=== PATIENT | female | born 1995 | race Caucasian/White ===

== ENCOUNTER 2019-08-10 09:44 | Emergency (ER) | payer MEDICAID, SELFPAY ==
[2019-08-10 09:48] VITALS: BP 137/83; PULSE 137; RESP 18; TEMP 36.4; O2SAT 98; BMI 34.9
--- NOTE | 2019-08-10 09:55 | ED_ITS ---
Entered by Criselda Phillips, acting as scribe for Neville Nava DO Aug 10, 2019 09:44 HPI - General Adult General: Chief complaint: General Medical Stated complaint: Nausea 8 weeks Time Seen by Provider: 08/10/19 09:51 History of Present Illness: HPI narrative: 23 yo luis miguel presents with nausea. Pt states that she is 8 weeks . Pt states that she has felt sick for a few weeks. Pt states that she is supposed to see Dr. Phipps next week. Pt states that she can't keep anything down. Pt states that she can only keep down 1/2 cup of water and some saltine crackers. MD complaint: nausea Onset (ago): day(s) Associated symptoms: Reports nausea and vomiting; Deny chest pain, dyspnea, headache(s), malaise or rash Review of Systems Const: Denies: fever, chills, body aches, change in appetite, fatigue or malaise Eyes: Denies: change in vision, blurry vision or blind spots ENMT: Denies: throat pain, ear pain, nasal discharge or nasal congestion Card: Denies: chest pain, edema, shortness of breath on exertion or shortness of breath when lying down Resp: Denies: shortness of breath, productive cough or non-productive cough GI: Reports: nausea and vomiting : Denies: flank pain, difficulty urinating, painful urination, urinary frequency or urinary urgency Skin/Breast: Denies: rash or itching Neuro: Denies: headache, numbness in extremities, difficulty walking or dizziness Psych: Denies: anxiety, depression or mood swings Endo: Denies: excessive urination, excessive thirst or tired all the time Salomon/Lymph: Denies: easy bruising or easy bleeding PFSH ED PFSH: Statuses (acute, chronic, etc) shown below reflect problem list status as previously entered and may not be historically accurate Social History Smoking and tobacco status: never smoked Physical Exam Const: COMMON NORMALS: no apparent distress GENERAL APPEARANCE: cooperative and comfortable ORIENTATION/CONSCIOUSNESS: Yes awake, Yes oriented to person, Yes oriented to place and Yes oriented to time HENMT: COMMON NORMALS: normocephalic, head/scalp atraumatic, hearing grossly normal bilaterally, external ears normal, EAC's normal, TM's normal bilaterally, nasal mucous membranes and turbinates normal, moist oral mucous membranes and oropharynx normal HEAD & SCALP: normocephalic and atraumatic NOSE: nasal mucous membranes and turbinates normal EXTERNAL EAR: Yes external ears normal EXTERNAL AUDITORY CANAL: EAC's normal TYMPANIC MEMBRANE: TM's normal bilaterally Eye: COMMON NORMALS: PERRL, EOMs intact bilaterally, conjunctivae normal and no scleral icterus CONJUNCTIVA: Yes conjunctivae normal PUPIL: Yes PERRL Neck/C-Spine: COMMON NORMALS: full ROM, no lymphadenopathy, supple and no JVD Lymph: LYMPHATIC: no lymphadenopathy noted and no lymphedema noted Resp: COMMON NORMALS: normal respiratory effort, no retractions, no use of accessory muscles and clear to auscultation bilaterally AUSCULTATION: clear to auscultation bilaterally Cardio: COMMON NORMALS: no JVD, regular rate, regular rhythm and no murmurs RATE: regular rate RHYTHM: regular rhythm GI: COMMON NORMALS: soft to palpation and no hepatosplenomegaly AUSCULTATION: Yes normoactive bowel sounds PALPATION: Yes soft, No tender, No guarding and Yes no hepatosplenomegaly Extremity: COMMON NORMALS: normal to inspection, normal capillary refill, no clubbing, cyanosis or edema, no calf tenderness and no pedal edema Neuro: SENSORIUM/ORIENTATION: Yes oriented to person, Yes oriented to place and Yes oriented to time Skin: COMMON NORMALS: no rashes or lesions noted GENERAL SKIN EXAM: no rashes or lesions noted Course ED course: Proved with IV fluids. Has an appointment with Dr. Phipps later this month for establishing obstetrical care. Started on Diclegis 1 p.o. twice daily gave Phenergan to use as needed for breakthrough if persists or worsens recheck. [place] diet Vital Signs: Vital signs: Vital Signs Temperature 97.6 F 08/10/19 09:48 Pulse Rate 137 H 08/10/19 09:48 Respiratory Rate 18 08/10/19 09:48 Blood Pressure 137/83 08/10/19 09:48 Pulse Oximetry 98 08/10/19 09:48 [facility] - General Adult Lab Data: Labs: Lab Results 08/10/19 08/10/19 08/10/19 Range/Units 10:05 10:11 10:11 WBC 5.6 (4.0-10.0) 10^3/ uL RBC 4.82 (4.1-5.3) 10^6/u L Hgb 13.9 (11.5-15.3) g/dL Hct 41.3 (37.0-47.0) % MCV 85.7 (81-99) fL MCH 28.8 (28.0-34.0) pg MCHC 33.7 (30.0-36.0) g/dL RDW 11.9 L (12.1-15.1) % Plt Count 226 (130-400) 10^3/c mm MPV 10.2 (7.4-10.4) fL Neut % (Auto) 55.3 % Lymph % (Auto) 32.7 % Aiken % (Auto) 7.0 % Eos % (Auto) 4.6 % Baso % (Auto) 0.2 % Neut # (Auto) 3.1 (1.8-7.7) 10^3/u L Lymph # (Auto) 1.8 (0.8-4.8) 10^3/u L Aiken # (Auto) 0.4 (0.2-0.9) 10^3/u L Eos # (Auto) 0.3 (0.0-0.8) 10^3/u L Baso # (Auto) 0.0 (0.0-0.1) 10^3/u L Nucleated RBC % (a uto) 0 % Nucleated RBCs # 0.0 /100WBC Sodium 136 (136-145) mmol/L Potassium 3.9 (3.5-5.1) mmol/L Chloride 100 (98-107) mmol/L Carbon Dioxide 22 (22-29) mmol/L Anion Gap 17.9 (5-19) BUN 9 (6-20) mg/dL Creatinine 0.7 (0.5-0.9) mg/dL GFR Calculation 104.6 (90-130) mL/min Glucose 114 H (74-109) mg/dL Calcium 9.9 (8.6-10.0) mg/Dl Total Bilirubin 0.5 (0.15-1.2) mg/dL AST 25 (0-32) U/L ALT 29 (0-33) U/L Alkaline Phosphata se 64 (35-105) IU/L Total Protein 8.1 (6.6-8.7) g/dL Albumin 4.7 (3.5-5.2) g/dL Globulin 3.4 (1.3-4.6) g/dL Ser , Elsa i-Qnt 510876.00 mIU/mL Urine Color Yellow (Yellow) Urine Appearance Clear (CLEAR) Urine pH 5.0 (5-7) Ur Specific Gravit y 1.020 (1.005-1.030) Urine Protein Neg (Negative) Urine Glucose (UA) Norm (Normal) Urine Ketones 2+ H (Negative) Urine Occult Blood Neg (Negative) Urine Nitrate Negative (Negative) Urine Bilirubin Neg (NEGATIVE) Urine Urobilinogen Norm (Negative) mg/dL Ur Leukocyte Kelly ase Negative (Negative) Discharge Plan Discharge Patient Disposition: Home, Self-Care Clinical Impression: , Hyperemesis Condition: Stable Prescriptions: New promethazine 25 mg tablet 25 mg PO Q6H PRN (Reason: nausea and vomiting) Qty: 20 RF: 0 Diclegis 10-10 mg tablet,delayed release (DR/EC) 1 tab PO BID Qty: 60 RF: 0 No Action No Known Home Medications RF: 0 Referrals: Makenzie Galvez DIPLOMA PHARMACY TECHNICIAN [Primary Care Provider] - Discharge Diet: Advance as tolerated Discharge Activity: Resume usual activity Activity Restrictions/Additional Instructions: Case management will call to assist you in getting set up for a obstetrical care. Coding Level of Care Code ED Photographic Laboratory Technician for Chg Fwd Exam Problem Focused The documentation recorded by the Alan reza Kialy, accurately reflects the service I personally performed and the decisions made by , Neville Nava, Aug 10, 2019 09:44
[2019-08-10] MEDS: promethazine 25 mg/mL SDV 1 mL 12.5 MG IM (10:06)
[2019-08-10] MEDS: sodium chloride 0.9% 1,000 ML 999 ML IV (10:13)
[2019-08-10 10:21] LABS: Basophils % 0.2 %; Eosinophils # 0.3 10^3/uL (0.0-0.8); Eosinophils % 4.6 %; Hematocrit 41.3 % (37.0-47.0); Hemoglobin 13.9 g/dL (11.5-15.3); Lymphocytes # 1.8 10^3/uL (0.8-4.8); Lymphocytes % 32.7 %; Mean Corpuscular HGB Conc 33.7 g/dL (30.0-36.0); Mean Corpuscular Hemoglobin 28.8 pg (28.0-34.0); Mean Corpuscular Volume 85.7 fL (81-99); Mean Platelet Volume 10.2 fL (7.4-10.4); Monocytes # 0.4 10^3/uL (0.2-0.9); Neutrophils # 3.1 10^3/uL (1.8-7.7); Neutrophils % 55.3 %; Nucleated Red Blood Cells % 0 %; Platelet Count 226 10^3/cmm (130-400); Red Blood Count 4.82 10^6/uL (4.1-5.3); Red Cell Distribution Width 11.9 % (12.1-15.1); White Blood Count 5.6 10^3/uL (4.0-10.0)
[2019-08-10 10:22] LABS: Add Urine Microscopic? NO
[2019-08-10 10:31] LABS: Bilirubin Urine Neg (NEGATIVE); Blood Urine Neg (Negative); Glucose Urine UA Norm (Normal); Ketones Urine 2+ (Negative); Leukocyte Esterase Urine Negative (Negative); Nitrate Urine Negative (Negative); Protein Urine Neg (Negative); Urine Appearance Clear (CLEAR); Urine Color Yellow (Yellow); Urobilinogen Urine Norm (Negative)
[2019-08-10 10:48] LABS: Alanine Aminotransferase 29 U/L (0-33); Albumin Level 4.7 g/dL (3.5-5.2); Alkaline Phosphatase 64 IU/L (35-105); Anion Gap 17.9 (5-19); Aspartate Amino Transferase 25 U/L (0-32); Blood Urea Nitrogen 9 mg/dL (6-20); Calcium 9.9 mg/Dl (8.6-10.0); Carbon Dioxide 22 mmol/L (22-29); Chloride 100 mmol/L (98-107); Globulin 3.4 g/dL (1.3-4.6); Glomerular Filtration Rate 104.6 mL/min (90-130); Glucose 114 mg/dL (74-109); Potassium 3.9 mmol/L (3.5-5.1); Sodium 136 mmol/L (136-145); Total Bilirubin 0.5 mg/dL (0.15-1.2); Total Protein 8.1 g/dL (6.6-8.7)
[2019-08-10 11:04] VITALS: BP 103/64; PULSE 61; RESP 16; O2SAT 98
[2019-08-10 11:55] VITALS: BP 119/68; PULSE 63; RESP 16; O2SAT 100
--- NOTE | 2019-08-11 10:50 | DCPLANNER ---
sales activity manager had message to schedule a follow up appointment for patient with [facility]. sales activity manager called [facility], spoke with Peggy, gave clinic patients information. sales activity manager was told that patients information would be printed and reviewed. Clinic will call insurance case manager and patient with appointment information.
--- NOTE | 2019-08-15 12:17 | DCPLANNER ---
Patient has an appointment scheduled for July at 3:15 with CNA PCT, Paola Riddle. Clinic will contact patient with appointment information.
--- NOTE | 2019-08-18 15:11 | DCPLANNER ---
Patient did attend appointment scheduled for 08.17.19 with [facility].
--- NOTE | 2019-08-24 14:39 | DCPLANNER ---
Patient did attend appointment scheduled for 08.17.19 with [facility].
== END 2019-08-10 12:00 | disposition home or self-care (01) ==
PROVIDERS: Emergency Provider Family Medicine; Family Provider Nurse Practitioner; PCP Nurse Practitioner
DX: O21.0 Mild hyperemesis gravidarum (principal); Z3A.08 8 weeks gestation of pregnancy
CPT/HCPCS: 80053; 81003; 84702; 85025; 96360; 96374; 99281; A9270; J2550; J7030

== ENCOUNTER → 2019-08-17 15:43 | Outpatient (BNVA) | payer MEDICAID, SELFPAY | PROVIDERS: Family Provider Nurse Practitioner; PCP Nurse Practitioner; Visit Provider Nurse Practitioner Women's Health | DX: Z01.89 Encounter for other specified special examinations (principal) | CPT/HCPCS: 84315 ==

== ENCOUNTER → 2019-09-05 15:02 | Outpatient (BNVA) | payer MEDICAID, SELFPAY | PROVIDERS: Family Provider Nurse Practitioner; PCP Nurse Practitioner; Visit Provider Obstetrics & Gynecology | DX: O99.211 Obesity complicating pregnancy, first trimester (principal); O21.9 Vomiting of pregnancy, unspecified; Z3A.12 12 weeks gestation of pregnancy | CPT/HCPCS: 80307; 82950; 84315; 85027; 86592; 86762; 86803; 86850; 86900; 87086; 87340; 87806 ==

== ENCOUNTER → 2019-09-19 11:06 | Outpatient (BNVA) | payer MEDICAID, SELFPAY | PROVIDERS: Family Provider Nurse Practitioner; PCP Nurse Practitioner; Visit Provider Obstetrics & Gynecology | DX: Z12.4 Encounter for screening for malignant neoplasm of cervix (principal); O26.892 Other specified pregnancy related conditions, second trimester | CPT/HCPCS: 84315; 87491; 87591 ==

== ENCOUNTER → 2019-09-26 08:21 | Outpatient (BNVA) | payer MEDICAID, SELFPAY | PROVIDERS: Family Provider Nurse Practitioner; PCP Nurse Practitioner; Visit Provider Obstetrics & Gynecology | DX: R73.09 Other abnormal glucose (principal) | CPT/HCPCS: 82951; 82952 ==

== ENCOUNTER → 2019-10-03 09:46 | Outpatient (BNVA) | payer MEDICAID, SELFPAY | PROVIDERS: Family Provider Nurse Practitioner; PCP Nurse Practitioner; Visit Provider Nurse Practitioner Women's Health | DX: O99.211 Obesity complicating pregnancy, first trimester (principal); O21.9 Vomiting of pregnancy, unspecified | CPT/HCPCS: 81003 ==

== ENCOUNTER → 2019-10-31 14:21 | Outpatient (BNVA) | payer SELFPAY | PROVIDERS: Family Provider Nurse Practitioner; PCP Nurse Practitioner; Visit Provider Obstetrics & Gynecology | DX: Z36.89 Encounter for other specified antenatal screening (principal); Z3A.20 20 weeks gestation of pregnancy | CPT/HCPCS: 76805 ==

== ENCOUNTER → 2019-11-07 11:15 | Outpatient (BNVA) | payer MEDICAID, SELFPAY | PROVIDERS: Family Provider Nurse Practitioner; PCP Nurse Practitioner; Visit Provider Obstetrics & Gynecology | DX: Z01.89 Encounter for other specified special examinations (principal) | CPT/HCPCS: 84315 ==

== ENCOUNTER → 2019-11-28 10:40 | Outpatient (BNVA) | payer MEDICAID, SELFPAY | PROVIDERS: Family Provider Nurse Practitioner; PCP Nurse Practitioner; Visit Provider Obstetrics & Gynecology | DX: Z36.89 Encounter for other specified antenatal screening (principal) | CPT/HCPCS: 76816 ==

== ENCOUNTER → 2019-12-05 10:29 | Outpatient (BNVA) | payer MEDICAID, SELFPAY | PROVIDERS: Family Provider Nurse Practitioner; PCP Nurse Practitioner; Visit Provider Obstetrics & Gynecology | DX: Z34.01 Encounter for supervision of normal first pregnancy, first trimester (principal) | CPT/HCPCS: 81000; 82950 ==

== ENCOUNTER → 2019-12-19 15:13 | Outpatient (BNVA) | payer MEDICAID, SELFPAY | PROVIDERS: Family Provider Nurse Practitioner; PCP Nurse Practitioner; Visit Provider Obstetrics & Gynecology | DX: Z36.89 Encounter for other specified antenatal screening (principal) | CPT/HCPCS: 76816 ==

== ENCOUNTER → 2019-12-26 09:23 | Outpatient (BNVA) | payer MEDICAID, SELFPAY | PROVIDERS: Family Provider Nurse Practitioner; PCP Nurse Practitioner; Visit Provider Obstetrics & Gynecology | DX: Z34.01 Encounter for supervision of normal first pregnancy, first trimester (principal) | CPT/HCPCS: 81000; 85025 ==

== ENCOUNTER → 2020-01-09 12:56 | Outpatient (BNVA) | payer MEDICAID, SELFPAY | PROVIDERS: Family Provider Nurse Practitioner; PCP Nurse Practitioner; Visit Provider Obstetrics & Gynecology | DX: Z34.01 Encounter for supervision of normal first pregnancy, first trimester (principal) | CPT/HCPCS: 81000 ==

== ENCOUNTER → 2020-01-23 12:50 | Outpatient (BNVA) | payer MEDICAID, SELFPAY | PROVIDERS: Family Provider Nurse Practitioner; PCP Nurse Practitioner; Visit Provider Obstetrics & Gynecology | DX: Z34.01 Encounter for supervision of normal first pregnancy, first trimester (principal) | CPT/HCPCS: 81000 ==

== ENCOUNTER → 2020-02-07 14:34 | Outpatient (BNVA) | payer MEDICAID, SELFPAY | PROVIDERS: Family Provider Nurse Practitioner; PCP Nurse Practitioner; Visit Provider Nurse Practitioner Women's Health | DX: O99.213 Obesity complicating pregnancy, third trimester (principal); O21.2 Late vomiting of pregnancy; Z3A.34 34 weeks gestation of pregnancy | CPT/HCPCS: 81000 ==

== ENCOUNTER → 2020-02-20 08:01 | Outpatient (BNVA) | payer MEDICAID, SELFPAY | PROVIDERS: Family Provider Nurse Practitioner; PCP Nurse Practitioner; Visit Provider Obstetrics & Gynecology | DX: O36.8130 Decreased fetal movements, third trimester, not applicable or unspecified; O99.213 Obesity complicating pregnancy, third trimester | CPT/HCPCS: 81000; 87081 ==

== ENCOUNTER → 2020-02-27 09:02 | Outpatient (BNVA) | payer MEDICAID, SELFPAY | PROVIDERS: Family Provider Nurse Practitioner; PCP Nurse Practitioner; Visit Provider Obstetrics & Gynecology | DX: O99.211 Obesity complicating pregnancy, first trimester (principal) | CPT/HCPCS: 81000 ==

== ENCOUNTER → 2020-03-05 10:50 | Outpatient (BNVA) | payer MEDICAID, SELFPAY | PROVIDERS: Family Provider Nurse Practitioner; PCP Nurse Practitioner; Visit Provider Obstetrics & Gynecology | DX: Z34.90 Encounter for supervision of normal pregnancy, unspecified, unspecified trimester (principal); Z34.03 Encounter for supervision of normal first pregnancy, third trimester | CPT/HCPCS: 81000 ==

== ENCOUNTER → 2020-03-12 10:03 | Outpatient (BNVA) | payer MEDICAID, SELFPAY | PROVIDERS: Family Provider Nurse Practitioner; PCP Nurse Practitioner; Visit Provider Obstetrics & Gynecology | DX: Z34.90 Encounter for supervision of normal pregnancy, unspecified, unspecified trimester (principal) | CPT/HCPCS: 81000 ==

== ENCOUNTER → 2020-03-18 12:41 | Outpatient (BNVA) | payer MEDICAID, SELFPAY | PROVIDERS: Family Provider Nurse Practitioner; PCP Nurse Practitioner; Visit Provider Obstetrics & Gynecology | DX: O99.213 Obesity complicating pregnancy, third trimester (principal) | CPT/HCPCS: 81000 ==

== ENCOUNTER 2020-03-22 07:05 | Inpatient (IN) | payer MEDICAID, SELFPAY ==
[2020-03-22] VITALS (116 sets, daily range): BP systolic 0–140; BP diastolic 0–91; PULSE 34–112; RESP 16–18; TEMP 36.5–37.1; O2SAT 91–100; BMI 40.1
[2020-03-22 08:06] LABS: Basophils # 0.1 10^3/uL (0.0-0.1); Basophils % 0.6 %; Eosinophils # 0.1 10^3/uL (0.0-0.8); Eosinophils % 0.9 %; Hematocrit 36.1 % (37.0-47.0); Hemoglobin 11.6 g/dL (11.5-15.3); Lymphocytes # 2.2 10^3/uL (0.8-4.8); Lymphocytes % 25.3 %; Mean Corpuscular HGB Conc 32.1 g/dL (30.0-36.0); Mean Corpuscular Hemoglobin 29.3 pg (28.0-34.0); Mean Corpuscular Volume 91.2 fL (81-99); Mean Platelet Volume 11.9 fL (7.4-10.4); Monocytes # 0.7 10^3/uL (0.2-0.9); Monocytes % 7.9 %; Neutrophils # 5.61 10^3/uL (1.8-7.7); Neutrophils % 65.1 %; Nucleated Red Blood Cells % 0 %; Platelet Count 168 10^3/cmm (130-400); Red Blood Count 3.96 10^6/uL (4.1-5.3); Red Cell Distribution Width 13.3 % (12.1-15.1); White Blood Count 8.6 10^3/uL (4.0-10.0)
[2020-03-22] MEDS: miSOPROStol 100 mcg tablet 25 MCG VAGINAL ×2 (08:22→12:54)
[2020-03-22] MEDS: fentaNYL 50 mcg/mL INJ 2mL IVP (16:29)
[2020-03-22] MEDS: lactated ringers 1,000 ML 999 ML IV ×2 (16:31→17:34)
--- NOTE | 2020-03-22 17:30 | ANES.PAUD2 ---
Pre-Anesthetic Update Pre-Anesthetic Assessment: Date of Surgery/Procedure: 03/22/20 Preop Diagnosis: IUP Proposed Procedure: epidural Any changes to Pre-Anesthetic Assessment?: No Labs Last 48hrs: Laboratory Results - last 48 hr 03/22/20 07:50 WBC 8.6 RBC 3.96 L Hgb 11.6 Hct 36.1 L MCV 91.2 MCH 29.3 MCHC 32.1 RDW 13.3 Plt Count 168 MPV 11.9 H Neut % (Auto) 65.1 Lymph % (Auto) 25.3 Kingfisher % (Auto) 7.9 Eos % (Auto) 0.9 Baso % (Auto) 0.6 Neut # (Auto) 5.61 Lymph # (Auto) 2.2 Kingfisher # (Auto) 0.7 Eos # (Auto) 0.1 Baso # (Auto) 0.1 Nucleated RBC % (a uto) 0 Nucleated RBCs # 0.0 Vitals: Temperature 98.6 F 03/22/20 16:37 Temperature Source Oral 03/22/20 16:37 Pulse Rate 88 03/22/20 17:23 Pulse Rhythm 03/22/20 08:00 Pulse Strength 3+ Normal 03/22/20 08:00 Respiratory Rate 18 03/22/20 16:29 Respiratory Effort Non-Labored 03/22/20 16:29 Respiratory Depth Normal 03/22/20 16:29 Respiratory Patter n 03/22/20 16:29 Blood Pressure 140/89 03/22/20 17:23 Blood Pressure Yue n 108 03/22/20 17:23 Oxygen Delivery Me thod 03/22/20 07:33 Exam: Pre-Anes Outpt Exam: alert, oriented x 3, clear to auscultation bilaterally and regular rate & rhythm Cardiac Studies: No Data to Display
--- NOTE | 2020-03-22 17:57 | ANES.PROC ---
Anesthesia Procedures Procedure/Date: 03/22/20 epidural Procedure Narrative: epidural complete, bolus given, epidural pump initiated with DIALYSIS EQUIPMENT TECHNICIAN education given, vitals taken during procedure using OBIX system and satisfactory throughout, patient admits to decrease pain, report of procedure to OB RN Epidural: Time Out Performed: Yes Consents Signed: Procedure Consent Consent: requested by attending/covering physician, from patient, risks and benefits reviewed and patient agrees to proceed Lumbar Level: L3-L4 Epidural position: sitting Epidural procedure: sterile prep of area, 1% lidocaine to numb the area (3 mL), 18 g needle, negative for paresthesia passed, neg for paresthesia, test dose given, 1.5% xylocaine 1:200k epi (5 mL), 0.2% Ropivacaine bolus ml (5 mL), placed PCEA, no systemic response, sterile dressing applied, L.U.D. no apparent complications and 0.2% Ropiavacaine @ mls/hr (13 mL/hr)
[2020-03-22] MEDS: dextrose 5%-lactated ringers 1,000 ML 125 ML IV ×2 (18:48→23:54)
--- NOTE | 2020-03-22 19:19 | PC.NURSE ---
PER SHIFT REPORT, PREVIOUS SHIFT ATTEMPTED TO REPORT RESULTS OF CERVICAL EXAM TO DR KENDRICK BUT THERE WAS NO ANSWER WHEN CALLED.
--- NOTE | 2020-03-22 20:01 | PM.PN ---
Subjective Subjective: Interval history: 24-year-old female with an estimated gestational age of 40 weeks +5 days. Elective induction. Refers feeling comfortable with the epidural. Vitals/I&O/Wt Last Vital Signs Temp 98.6 F 03/22/20 16:37 Pulse 88 03/22/20 19:48 Resp 18 03/22/20 16:29 BP 129/70 03/22/20 19:48 Pulse Ox 99 03/22/20 18:41 Weight last 48 hrs Weight 102.965 kg Physical Exam Narrative: EXAM NARRATIVE: GA: Alert and oriented ?3. Lungs: Clear to auscultation bilaterally. Heart: Regular rhythm and rate. Abdomen: Gravid, fundal height correlates dates, nontender. RAILROAD CONSTRUCTION DIRECTOR: SVE; dilation: 7 cm, effacement: 90 %, station: -2, presentation: Vertex, membranes: AROM meconium stain. Extremities: no edema, no cyanosis, no calves pain. heart tracing: Basal rate: 140s bpm, Variability: Moderate, Accelerations: Present, Decelerations: Absent, Contractions: Every 4-5 minutes. Urinary Catheter Management^: Suazo: Cath Placed During This Visit: yes Reason for Continuing Indwelling Catheter: Other Urinary Catheter Date of Insertion: 03/22/20 Urinary Catheter Time of Insertion: 18:45 Data : 03/22/20 07:50 A&P Assessment and plan (1) Obesity affecting : Status: Acute Qualifiers: Trimester: third trimester Qualified Code(s): O99.213 - Obesity complicating , third trimester (2) Term : Patient admitted for elective induction. Misoprostol ?2 placed and she started with contractions of progressing into active labor. Patient comfortable with epidural. Doesn't show meconium-stained amniotic fluid. heart tracing category 1, scalp stimulation positive and reassuring. Anticipate vaginal delivery. Status: Acute Attestations Medical Necessity Statement*: In my professional opinion per admitting diagnosis Coding Level of Care Code Acute Automatic Quilling Machine Operator for [facility] Fwd Diagnoses Obesity affecting O99.213 Trimester: third trimester Term Z34.90
[2020-03-23] VITALS (71 sets, daily range): BP systolic 0–150; BP diastolic 0–83; PULSE 72–109; RESP 15–20; TEMP 36.4–37.2; O2SAT 95–99
[2020-03-23] MEDS: ondansetron 2 mg/ML SDV 2 mL 4 MG IVP (00:22)
[2020-03-23] MEDS: oxytocin 30 UNIT/500 ML BAG 600 UNIT IV (07:16)
--- NOTE | 2020-03-23 07:22 | PM.DELIVERY ---
Delivery Note: Date of delivery: March 23, 2020 Pre-delivery diagnoses: Term Post-delivery diagnoses: Term delivered Procedure: Spontaneous vaginal delivery Op report anesthesia: Epidural Delivering Physician: Colin Phipps M.D. Estimated blood loss (mL): 500 Findings: Term girl, Apgars 8/9, weight 3840 g, nuchal cord ?1. Delivery: The patient was noted to be complete and pushing, so was placed in the dorsal lithotomy position, prepped and draped in the usual sterile fashion for a vaginal delivery. Pt. Noted to have epidural anesthesia. At 0706 the patient delivered a viable full term female infant weighing 3840 g with scores of 8 and 9 at one and five minutes, respectively. The vertex was delivered spontaneously over Intact perineum. The patient was asked to push and the head delivered spontaneously in the SAVAGE position, over an intact perineum. A nuchal cord was checked and 1 noted, and delivered through around head as necessary. The anterior shoulder delivered easily and the posterior shoulder followed. The remainder of the infant was easily delivered and the oropharynx and nasopharynx was bulb suctioned. The was noted to have spontaneous cry and spontaneous movement of all four extremities. The cord was clamped x 2 and cut and noted to have 2 arteries and one vein. The infant was passed to the Mother's abdomen where Dynamite Reclaimer and nursing personnel were in attendance. The placenta delivered intact Spontaneously and the uterus Was explored. 20 units of Pitocin was placed in the IV bag to firm the uterus. Examination of the cervix and vaginal vault did not reveal any lacerations. A vaginal pack was then placed. Examination of the perineum showed No lacerations. The vaginal pack was then removed. The patient tolerated this procedure well, and recovered in L&D with her to the OB rodriguez. All sponge and needle counts were correct. A&P Assessment and plan (1) Term delivered: Status: Acute Coding Level of Care Code Acute Maintenance Technician for Chg Fwd Diagnoses Term delivered O80
[2020-03-23] MEDS: prenatal vitamin Capsule 1 CAP PO (09:00)
[2020-03-23] MEDS: docusate sodium 100 mg Capsule PO ×2 (09:00→18:02)
[2020-03-23] MEDS: lanolin oint 7 gm 1 APPLIC TOPICAL (09:01)
[2020-03-23] MEDS: benzocaine-menthol 78 gm Canister 1 SPRAY TOPICAL (09:01)
[2020-03-23 19:42] LABS: Hematocrit 27.7 % (37.0-47.0); Hemoglobin 8.9 g/dL (11.5-15.3); Mean Corpuscular HGB Conc 32.1 g/dL (30.0-36.0); Mean Corpuscular Hemoglobin 29.8 pg (28.0-34.0); Mean Corpuscular Volume 92.6 fL (81-99); Mean Platelet Volume 11.7 fL (7.4-10.4); Platelet Count 154 10^3/cmm (130-400); Red Blood Count 2.99 10^6/uL (4.1-5.3); Red Cell Distribution Width 13.8 % (12.1-15.1)
[2020-03-24 06:14] VITALS: BP 121/75; PULSE 92; RESP 16; TEMP 36.7; O2SAT 97
[2020-03-24] MEDS: prenatal vitamin Capsule 1 CAP PO (08:39)
[2020-03-24] MEDS: docusate sodium 100 mg Capsule PO (08:39)
[2020-03-24 10:15] VITALS: BP 101/62; PULSE 82; RESP 16; TEMP 36.7; O2SAT 98
--- NOTE | 2020-03-24 11:35 | P.DS_ITS ---
Discharge Providers DIVINITY PROFESSOR Date of Admission: 03/22/20 07:05 Date of Discharge: 03/24/20 Attending Provider at Admission: Colin Phipps MD Attending Provider at Discharge: Colin Phipps MD Primary Care Provider: Makenzie Galvez APN Diagnoses at Discharge Discharge Diagnosis (1) Term delivered: Status: Acute Reason for Visit Reason for Visit: Induction of labor Hospital Course Hospital Course: 24 y/o female s/p day 1. Admitted for elective induc tion. She progressed to have a full-term viable female infant Apgars 8/9 with weight of 3840 g. She is afebrile hemodynamically stable. Tolerating diet well. Information Peripartum Data: Infant Delivery Method: Vaginal Physical Exam Narrative: EXAM NARRATIVE: GA; alert and oriented x 3 HEENT: normal Breasts: engorged Nipples - skin intact Lungs; clear to auscultation Heart: regular rhythm, no murmurs. Abd: Appropriately tender. BS+. Uterine fundus below umbilicus. No Fundal Tenderness. Perineum: normal lochia. Extremities: no edema, no cyanosis, no tenderness. Urinary Catheter Management^: Suazo: Cath Placed During This Visit: yes, but has since been removed by the nurse Reason for Continuing Indwelling Catheter: Other Urinary Catheter Date of Insertion: 03/22/20 Urinary Catheter Time of Insertion: 18:45 Date Urinary Catheter Removed: 03/23/20 Time Urinary Catheter Discontinued: 06:18 Discharge Data Data Completed and Pending: Labs from last 24 hours 03/23/20 19:30 WBC 16.0 H RBC 2.99 L Hgb 8.9 L Hct 27.7 L MCV 92.6 MCH 29.8 MCHC 32.1 RDW 13.8 Plt Count 154 MPV 11.7 H Vitals: Last Vital Signs Temp 98.0 F 03/24/20 06:14 Pulse 92 03/24/20 06:14 Resp 16 03/24/20 06:14 BP 121/75 03/24/20 06:14 Pulse Ox 97 03/24/20 06:14 Discharge Plan Discharge Patient Disposition: Home Condition: Stable Prescriptions: New acetaminophen 325 mg capsule 325 mg PO Q4H PRN (Reason: fever or pain) Qty: 60 RF: 0 ferrous sulfate [Iron (ferrous sulfate)] 325 mg (65 mg iron) tablet 325 mg PO BID Qty: 60 RF: 0 ibuprofen 800 mg tablet 800 mg PO TID PRN (Reason: pain) Qty: 60 RF: 0 Continued prenat.vits,aj,[id number]-[id number] Tablet 1 tab PO DAILY RF: 0 Discharge Orders: Discharge Order (Routine); Ordered 03/24/20 Ordered By: Colin Phipps Referrals: Colin Phipps MD [Physician] - 6 Weeks (Please call [phone] first thing on Wednesday03/25/2020 to schedule your [address] Phipps.) Discharge Diet: Regular Discharge Activity: Increase activity as tolerated Patient Instructions: Vitamins (By mouth), OB Discharge Report, OB Food/Drug Interaction Guide, OB Proud Parent Packet, OB Vaginal Deliveries Activity Restrictions/Additional Instructions: Pelvic rest for 6 weeks (no sex, no tampons, no vaginal douches). Return to the emergency room if any fever, increased bleeding or pain. Discharge Attestations DIVINITY PROFESSOR Time Spent in Discharge Care*: greater than 30 min Coding Level of Care Code Acute Waterproof Bag Cutting Machine Operator for Chg Fwd Diagnoses Term delivered O80
--- NOTE | 2020-03-24 11:46 | ANE.PACU2 ---
Inpatient post-anesthesia follow up: Airway intact: Yes Vital signs: Temperature 98.0 F Pulse Rate 92 Respiratory Rate 16 Blood Pressure 121/75 Pulse Oximetry 97 Oxygen Delivery Me thod Room Air Oxygen Flow Rate Fraction of Inspir ed Oxygen Hydration adequate: Yes Nausea and vomiting: No Pain level: 1 Mental status: Baseline Additional Comments: No headaches, weakness, numbness, no signs of infection at epidural site
[2020-03-24 13:58] VITALS: BP 115/75; PULSE 75; RESP 18; TEMP 36.8; O2SAT 98
[2020-03-24 13:59] VITALS: BP 115/75; PULSE 75; RESP 18; TEMP 36.8; O2SAT 98
--- NOTE | 2020-03-24 13:59 | PC.NURSE ---
pt rooming in with
== END 2020-03-24 14:00 | disposition home or self-care (01) | DRG 807 ==
PROVIDERS: Admitting Provider Obstetrics & Gynecology; Family Provider Nurse Practitioner; PCP Nurse Practitioner; Visit Provider Obstetrics & Gynecology
DX: O69.81X0 Labor and delivery complicated by cord around neck, without compression, not applicable or unspecified (principal); Z37.0 Single live birth; Z3A.40 40 weeks gestation of pregnancy; O99.214 Obesity complicating childbirth
CPT/HCPCS: 12345; 36415; 51702; 59025; 59409; 85025; 85027; 96375; J2405; J2795; J3010

== ENCOUNTER → 2020-09-23 15:25 | Outpatient (BNVA) | payer BC, MEDICAID, SELFPAY | PROVIDERS: Family Provider Nurse Practitioner; PCP Nurse Practitioner; Visit Provider Obstetrics & Gynecology | DX: R87.610 Atypical squamous cells of undetermined significance on cytologic smear of cervix (ASC-US) (principal); Z12.4 Encounter for screening for malignant neoplasm of cervix | CPT/HCPCS: 81025; 88175 ==

== ENCOUNTER → 2023-01-05 09:14 | Outpatient (BNVA) | payer BC, MEDICAID, SELFPAY | PROVIDERS: Family Provider Nurse Practitioner; PCP Nurse Practitioner; Visit Provider Obstetrics & Gynecology | DX: Z30.9 Encounter for contraceptive management, unspecified (principal) | CPT/HCPCS: 81025 ==